=== PATIENT | female | born 1985 | race Asian ===

== ENCOUNTER 2019-06-07 11:25 | Outpatient (CLI) | payer BC ==
--- NOTE | 2019-06-07 11:40 | RAD ---
Exam: Chest 2 views HISTORY:Right-sided pain Comparison: None FINDINGS: Lungs: No masses or consolidation. Cardiac silhouette: Normal size Pulmonary vessels: Normal Pleural Spaces: Clear Pneumothorax: None Osseous abnormalities: None of acuity. IMPRESSION: No focal consolidation.
== END 2019-06-07 11:26 | disposition home or self-care (01) ==
LOC: BICRAD 11:25
PROVIDERS: ATTEND Physician Assistant
DX: R07.9 Chest pain, unspecified (principal)
CPT/HCPCS: 71046

== ENCOUNTER 2019-06-10 11:04 | Outpatient (CLI) | payer BC ==
--- NOTE | 2019-06-10 12:56 | ULT ---
GALLBLADDER ULTRASOUND: CLINICAL HISTORY: Pain. FINDINGS: No focal hepatic lesion. No cholelithiasis. Gallbladder wall is normal in caliber. Nixon's sign i s negative, as reported by garnett room worker. The common duct is normal in caliber at 3 mm. Incidental no te of mild prominence of the right renal collecting system. IMPRESSION: 1. No acute gallbladder pathology. 2. Mild prominence of the partially imaged right renal collecting system, incompletely assessed. Re commend followup renal ultrasound to further evaluate. POS: C
== END 2019-06-10 11:05 | disposition home or self-care (01) ==
LOC: ULT 11:04
PROVIDERS: ATTEND Physician Assistant
DX: R10.11 Right upper quadrant pain (principal)
CPT/HCPCS: 76705

== ENCOUNTER 2020-09-17 22:40 | Emergency (ER) | payer BC | END 2020-09-17 23:36 | disposition home or self-care (01) | LOC: ERS 22:40 | DX: O9A.212 Injury, poisoning and certain other consequences of external causes complicating pregnancy, second trimester (principal); T43.221A Poisoning by selective serotonin reuptake inhibitors, accidental (unintentional), initial encounter; Z3A.26 26 weeks gestation of pregnancy | CPT/HCPCS: 93005 ==